=== PATIENT | female | born 1995 | race African-American/Black ===

== ENCOUNTER 2018-09-27 01:58 | Emergency (ER) | payer MEDICAID ==
[~2018-09-27] VITALS: Ht 142.2 cm; Wt 48.0 kg
[2018-09-27] MEDS ORDERED: MORPHINE SULFATE 4 MG/ML CPJ (NOT FOR IM USE) IV ONE (02:30)
[2018-09-27] MEDS ORDERED: SODIUM CHLORIDE 0.9% 1,000 ML IV ONE (02:30)
[2018-09-27 02:46] LABS: BASOPHILS % 0.8 % (0.0-2.0); EOSINOPHILS % 3.7 % (0.0-5.0); HEMATOCRIT. 38.9 % (36.0-48.0); HEMOGLOBIN. 12.9 g/dL (12.0-16.0); LYMPHOCYTES % 19.3 % (20.0-50.0); MEAN CORPUSCULAR HEMOGLOBIN 29.1 pg (28.0-32.0); MEAN CORPUSCULAR VOLUME 87.6 fL (81.0-99.0); MEAN PLATELET VOLUME 8.3 fl (7.4-10.4); MONOCYTES % 7.3 % (2.0-8.0); NEUTROPHILS % 68.9 % (40.0-76.0); PLATELET 368 x1000/uL (130-400); RED BLOOD CELL COUNT 4.45 mill/uL (4.2-5.4); RED CELL DISTRIBUTION WIDTH 14.6 % (11.6-14.6)
[2018-09-27 02:50] LABS: CHLORIDE 106 mEq/L (98-107)
[2018-09-27] MEDS ORDERED: DIPHENHYDRAMINE 25MG CAPSULE PO NR (03:45)
[2018-09-27] MEDS ORDERED: KETOROLAC 30MG/ML VIAL IV NR (04:00)
[2018-09-27 04:25] VITALS: BP 128/71
== END 2018-09-27 04:38 | disposition home or self-care (01) ==
LOC: ER 01:58
DX: G89.29 Other chronic pain (principal); D57.80 Other sickle-cell disorders without crisis; J45.909 Unspecified asthma, uncomplicated; Z98.890 Other specified postprocedural states
CPT/HCPCS: 36415; 80053; 85025; 85044; 96374; 96375; 99283; J1885; J2270; J7030; Q0163; Z7610